=== PATIENT | female | born 1985 | race Native Hawaiian/Other Pacific Islander ===

== ENCOUNTER 2017-08-10 23:16 | Emergency (ER) | payer OTHER ==
[~2017-08-10] VITALS: Ht 160 cm; Wt 51.3 kg
[~2017-08-10 23:16] MED LIST: ZANTAC 75 PO
[2017-08-10 23:32] VITALS: BP 114/77; TEMP 98.3
== END 2017-08-10 23:50 | disposition home or self-care (01) ==
LOC: ED 23:16
DX: T78.40XA Allergy, unspecified, initial encounter (principal); R22.0 Localized swelling, mass and lump, head
CPT/HCPCS: 99281

== ENCOUNTER 2017-11-19 21:18 | Emergency (ER) | payer OTHER ==
[~2017-11-19] VITALS: Ht 160 cm; Wt 49.9 kg
[2017-11-19 21:52] LABS: PLATELET COUNT 316 K/uL (152-353)
[2017-11-19 22:09] LABS: PARTIAL THROMBOPLASTIN TIME 24.2 SECONDS (24.5-33.6)
[2017-11-19 22:10] LABS: SODIUM 137 mmol/L (136-145)
[2017-11-19 23:36] VITALS: BP 120/75; TEMP 98.6
== END 2017-11-19 23:45 | disposition home or self-care (01) ==
LOC: ED 21:18
PROVIDERS: Emergency Medicine
DX: R07.89 Other chest pain (principal)
CPT/HCPCS: 36415; 80053; 80307; 81000; 82550; 84484; 85027; 85610; 85730; 93005; 99283; G0479

== ENCOUNTER 2017-12-13 06:01 | Emergency (ER) | payer OTHER ==
[~2017-12-13] VITALS: Ht 160 cm; Wt 47.6 kg
[2017-12-13 10:00] VITALS: BP 131/83; TEMP 98
== END 2017-12-13 10:00 | disposition home or self-care (01) ==
LOC: ED 06:01
DX: S09.93XA Unspecified injury of face, initial encounter (principal); Y04.8XXA Assault by other bodily force, initial encounter; Y92.410 Unspecified street and highway as the place of occurrence of the external cause
CPT/HCPCS: 99283

== ENCOUNTER 2017-12-16 18:18 | Emergency (ER) | payer OTHER ==
[~2017-12-16] VITALS: Ht 162.6 cm; Wt 49.9 kg
[2017-12-16 18:53] LABS: PLATELET COUNT 251 K/uL (152-353)
[2017-12-16 19:00] LABS: POTASSIUM 3.9 mmol/L (3.6-5.2)
[2017-12-16 20:14] VITALS: BP 165/86; TEMP 99.8
== END 2017-12-16 20:21 | disposition home or self-care (01) ==
LOC: ED 18:18
PROVIDERS: Specialist
DX: J40 Bronchitis, not specified as acute or chronic (principal); B96.89 Other specified bacterial agents as the cause of diseases classified elsewhere
CPT/HCPCS: 36415; 80053; 85027; 87804; 99283

== ENCOUNTER 2018-02-09 21:17 | Emergency (ER) | payer OTHER ==
[~2018-02-09] VITALS: Ht 160 cm; Wt 49.4 kg
[2018-02-09 22:19] VITALS: BP 143/91; TEMP 98.7
== END 2018-02-09 22:31 | disposition home or self-care (01) ==
LOC: ED 21:17
PROC: 0HQ1XZZ Repair Face Skin, External Approach (ICD-10-PCS; principal; 2018-02-09)
DX: S01.111A Laceration without foreign body of right eyelid and periocular area, initial encounter (principal); S02.2XXA Fracture of nasal bones, initial encounter for closed fracture; Y04.0XXA Assault by unarmed brawl or fight, initial encounter; Y92.149 Unspecified place in prison as the place of occurrence of the external cause
CPT/HCPCS: 90715; 99283